=== PATIENT | female | born 1950 | race Caucasian/White ===

== ENCOUNTER 2025-09-04 20:45 | Inpatient (IN) | payer MEDICARE, MEDICAID ==
[~2025-09-04] VITALS: Ht 165.1 cm; Wt 65.0 kg
[~2025-09-04 20:45] MED LIST: ATOR20TA50 PO; DONE5TAB80 PO; LEVO75TA6 PO; LISI1SOL PO; MET25T PO
[2025-09-04 21:06] VITALS: O2SAT 63
[2025-09-04] MEDS: SODIUM CHLORIDE 0.9% 1,000 ML IVB ONE (21:26)
--- NOTE | 2025-09-04 21:36 | ED.PDOC ---
History of Present Illness HPI Comments 74-year-old, nonverbal and bed-bound female, with a known history of Alzheimer's, is brought in by ambulance from [facility] for chief complaint of G-tube displacement. Per EMS personnel report, faculty called after patient has G-tube was dislodged an hour ago, earlier, this evening. G-tube was placed, recently, 1-2 days ago. No reported recent trauma or injury. No further symptoms endorsed at this time. Chief Complaint: Tube Replacement Time Seen by MD: 21:00 Reviewed Notes: Nurses Notes, Senior Animal Trainer Notes, Medications, Allergies Allergies: Coded Allergies: NO KNOWN ALLERGIES (Unverified , 01/26/24) Home Meds Reported Medications Donepezil Hydrochloride (DONEPEZIL HCL) 5 Mg Tab, 1 TAB PO DAILY 01/28/24 Metoprolol Tartrate (Lopressor) 25 Mg Tb, 1 TAB PO BID 01/28/24 Levothyroxine Sodium (Levothyroxine Sodium) 75 Mcg Tab, 1 TAB PO DAILY 01/28/24 Lisinopril (Qbrelis) 1 Mg/Ml Sadia, PO 01/28/24 Atorvastatin Calcium (ATORVASTATIN CALCIUM) 20 Mg Tab, 1 TAB PO DAILY 01/27/24 Information Source: Patient, Emergency Med Personnel Mode of Arrival: EMS Severity: Moderate Timing: Hours Duration: Since onset Prehospital treatment: None Past Medical History PAST MEDICAL HISTORY: Dementia (Alzheimer's), HTN, Thyroid (Hypothyroidism) Surgical History (Other): G-tube ASSET MANAGEMENT COORDINATOR History: Denies all ASSET MANAGEMENT COORDINATOR Hx Family History Family History: Unknown Social History Smoker: Non-Smoker Alcohol: Denies ETOH Use Drugs: Denies Drug Use Lives In: Home All Other Systems: Reviewed and Negative (Comprehensive review of systems are negative unless otherwise stated in HPI) Physical Exam General Appearance: No Apparent Distress, Normal HEENT: Normal ENT Inspection, Pharynx Normal, TMs Normal Neck: Full Range of Motion, Non-Tender, Normal, Normal Inspection Respiratory: Chest Non-Tender, Lungs Clear, No Accessory Muscle Use, No Respiratory Distress, Normal Breath Sounds Cardiovascular: No Edema, No JVD, No Murmur, No Gallop, Normal Peripheral Pulses, Regular Rate/Rhythm Breast Exam: Deferred Gastrointestinal: No Organomegaly, Non Tender, No Pulsatile Mass, Normal Bowel Sounds, Soft, Other (Feeding stoma present but appears closed) Genitalia: Deferred Pelvic: Deferred Rectal: Deferred Extremities: No calf tenderness, Normal capillary refill, Normal inspection, Normal range of motion, Non-tender, No pedal edema Musculoskeletal : Apperance: Normal Neurologic: hand hide stretcher II-XII nml as Tested, No Motor Deficits, Normal Affect (Patient is bed-bound nonverbal at baseline and has a history of Alzheimer's), Normal Mood, No Sensory Deficits Cerebellar Function: Normal Reflexes: Normal Skin: Dry, Normal Color, Warm Lymphatic: No Adenopathy Was a procedure done? Was a procedure done?: No Differential Dx Considerations may include: Differential diagnosis includes but not limited to: Dehydration, sepsis, electrolyte abnormality, surgical infection. And others X-Ray, Labs, Meds, VS Vital Signs Date Time Temp Pulse Resp B/P (MAP) Pulse Ox O2 Delivery O2 Flow Rate FiO2 09/04/25 21:06 63 Room Air* 0 21 09/04/25 21:05 98.3 68 17 118/91 (100) 93 98.3 09/04/25 20:47 97.6 66 16 140/70 94 97.6 Lab Test 09/04/25 22:40 09/04/25 21:23 Range/Units Sodium Level 142 136-145 mmol/L Potassium Level 3.6 3.5-5.1 mmol/L Chloride Level 111 H 98-107 mmol/L Carbon Dioxide Level 24 20-31 mmol/L Anion Gap 7 5-15 Blood Urea Nitrogen 14 9-23 mg/dL Creatinine 0.53 L 0.550-1.02 mg/dL Glomerular Filtration Rate Calc 97 >90 mL/min BUN/Creatinine Ratio 26.4 H 10.0-20.0 Serum Glucose 84 74-106 mg/dL Calcium Level 8.3 L 8.7-10.4 mg/dL Magnesium Level 2.0 1.6-2.6 mg/dL Total Bilirubin 0.4 0.2-1.0 mg/dL Aspartate Amino Transferase (AST) 19 13-40 U/L Alanine Aminotransferase (ALT) 15 7-40 U/L Alkaline Phosphatase 91 46-116 U/L Total Protein 6.6 5.7-8.2 g/dL Albumin 3.4 3.2-4.8 g/dL White Blood Count 8.8 4.4-10.8 10^3/uL Red Blood Count 4.23 4.0-5.20 10^6/uL Hemoglobin 13.3 12.2-16.2 g/dL Hematocrit 38.6 36.0-46.0 % Mean Corpuscular Volume 91.3 80.0-100.0 fL Mean Corpuscular Hemoglobin 31.5 28.0-32.0 pg Mean Corpuscular Hemoglobin Concent 34.5 32.0-36.0 g/dL Red Cell Distribution Width 13.7 11.8-14.3 % Platelet Count 262 140-450 10^3/uL Mean Platelet Volume 8.6 6.9-10.8 fL Neutrophils (%) (Auto) 66.8 37.0-80.0 % Lymphocytes (%) (Auto) 22.8 10.0-50.0 % Monocytes (%) (Auto) 6.4 0.0-12.0 % Eosinophils (%) (Auto) 3.6 0.0-7.0 % Basophils (%) (Auto) 0.4 0.0-2.0 % Neutrophils # (Auto) 5.9 1.6-8.6 10 ^3/uL Lymphocytes # (Auto) 2.0 0.4-5.4 10 ^3/uL Monocytes # (Auto) 0.6 0-1.3 10 ^3/uL Eosinophils # (Auto) 0.3 0-0.8 10 ^3/uL Basophils # (Auto) 0 0-0.2 10 ^3/uL Nucleated Red Blood Cells 0.0 % Prothrombin Time 10.4 9.3-11.8 sec Prothrombin Time INR 0.98 0.9-1.15 Activated Partial Thromboplast Time 25.4 24.5-34.5 SEC Current Medications Medications (Trade) Dose Ordered Sig/Heidi Route Start Time Stop Time Status Last Admin Sodium Chloride 1,000 ml @ 1,000 mls/hr Q1H ONCE IVB 09/04/25 21:15 09/04/25 22:14 DC 09/04/25 21:[address] [address] Ph: [phone] DIAGNOSTIC IMAGING Diagnostic Imaging Report : [id number] Signed PATIENT: JEFFERY MCCLURE ACCT: [id number] UNIT: [id number] : 1950 LOC: ER ROOM / BED: / AGE / SEX: 74 / F ADM STATUS: REG ER SERVICE 12 ORDERING PHYSICIAN: JT HERNANDEZ MD PROCEDURE(s): KUB - KUB ABDOMEN SINGLE VIEW REASON: PEG tube fell out ORDER NUMBER(s): [id number], ACCESSION NUMBER(s): [id number] EXAM: XY KUB ABDOMEN SINGLE VIEW HISTORY: PEG tube fell out COMPARISON: XY CHEST PORTABLE on DOS: 09/04/25 TECHNIQUE: Supine view of the abdomen FINDINGS/IMPRESSION: Nonobstructive bowel gas pattern noted. There is no evidence for pneumoperiton eum. No abnormal calcifications noted. Slight gas distention of colonic loops measuring of the upper limits of normal at 6 cm. No visualized tube. ATED BY: BHAVIN FULLER MD DICTATED DATE/TIME: 09/04/252148 SIGNED BY: BHAVIN FULLER MD SIGNED DATE/TIME: 09/04/252148 CC: [place] [id number] Ph: [phone] DIAGNOSTIC IMAGING Diagnostic Imaging Report : [id number] Signed PATIENT: JEFFERY MCCLURE ACCT: [id number] UNIT: [id number] : 1950 LOC: ER ROOM / BED: / AGE / SEX: 74 / F ADM STATUS: REG ER SERVICE 12 ORDERING PHYSICIAN: JT HERNANDEZ MD PROCEDURE(s): CXRP - CHEST PORTABLE REASON: SOB ORDER NUMBER(s): [id number], ACCESSION NUMBER(s): [id number] EXAM: XY CHEST PORTABLE HISTORY: SOB TECHNIQUE: 1 view of the chest COMPARISON: XY CHEST PORTABLE on DOS: 01/26/24 FINDINGS/IMPRESSION: LUNGS: No pleural effusion, consolidation, or pneumothorax. MEDIASTINUM: Unremarkable. BONES: No acute osseous abnormality. OTHER: None. ATED BY: BHAVIN FULLER MD DICTATED DATE/TIME: 09/04/252148 SIGNED BY: BHAVIN FULLER MD SIGNED DATE/TIME: 09/04/252148 CC: Time of 1ST Reevaluation: 21:30 Reevaluation 1ST: Unchanged Patient Education/Counseling: Other (Patient has Alzheimer's at baseline) Family Education/Counseling: No Family Present SEPSIS Sepsis Screen Date sepsis recognized/suspect: Sep 04, 2025 Time Sepsis recognized/suspect: 2048 Recent Procedure: No On Antibiotic Therapy: No Respiratory Rate >20: No Heart Rate >90: No Temp<36 C (96.8 F) or >38.3 C: No SBP <90 or MAP <65 mmHG: No New Acute Mental Status Change: No Is the patient on CPAP, BIPAP,: No Physician Orders Chest Portable (09/04/25 21:13) Electrocardigram (09/04/25 21:13) Kub Abdomen Single View (09/04/25 21:13) Vital Signs Date Time Temp Pulse Resp B/P (MAP) Pulse Ox O2 Delivery O2 Flow Rate FiO2 09/04/25 21:06 63 Room Air* 0 21 09/04/25 21:05 98.3 68 17 118/91 (100) 93 98.3 09/04/25 20:47 97.6 66 16 140/70 94 97.6 Laboratory Tests Test 09/04/25 21:23 White Blood Count 8.8 10^3/uL (4.4-10.8) Medications Medications Dose Ordered Sig/Heidi Route Start Time Stop Time Status Last Admin Dose Admin Sodium Chloride 1,000 ml @ 1,000 mls/hr Q1H ONCE IVB 09/04/25 21:15 09/04/25 22:14 DC 09/04/25 21:26 Departure 1 Departure Time of Disposition: 00:14 Impression: Primary Impression: Advanced dementia Additional Impressions: Feeding by G-tube Dislodged gastrostomy tube Dehydration Disposition: HOME / SELF CARE / HOMELESS Condition: Guarded Comments 74-year-old female with advanced dementia apparently just received a G-tube feeding tube a couple of days ago and the feeding tube came out. Lab results reviewed. Patient was given IV fluids. Patient will need to be admitted for supportive care and further workup. Critical Care Note Critical Care Time?: No Stability Stability form required: No Heart Score Heart Score: Heart Score Response (Comments) Value History N/A 0 EKG N/A 0 Age N/A 0 Risk Factors N/A 0 Troponin N/A 0 Total 0 I personally scribed for JT HERNANDEZ MD ([email or web address]) on 09/04/25 at 21:36. Electronically submitted by Nick Aleman ([email or web address]). I personally scribed for JT HERNANDEZ MD ([email or web address]) on 09/04/25 at 22:15. Electronically submitted by Nick Aleman ([email or web address]). JT HERNANDEZ MD Sep 04, 2025 21:36
--- NOTE | 2025-09-04 21:51 | DVH ---
EXAM: XY CHEST PORTABLE HISTORY: SOB TECHNIQUE: 1 view of the chest COMPARISON: XY CHEST PORTABLE on DOS: 01/26/24 FINDINGS/IMPRESSION: LUNGS: No pleural effusion, consolidation, or pneumothorax. MEDIASTINUM: Unremarkable. BONES: No acute osseous abnormality. OTHER: None.
--- NOTE | 2025-09-04 21:52 | DVH ---
EXAM: XY KUB ABDOMEN SINGLE VIEW HISTORY: PEG tube fell out COMPARISON: XY CHEST PORTABLE on DOS: 09/04/25 TECHNIQUE: Supine view of the abdomen FINDINGS/IMPRESSION: Nonobstructive bowel gas pattern noted. There is no evidence for pneumoperitoneum. No abnormal calcif ications noted. Slight gas distention of colonic loops measuring of the upper limits of normal at 6 c m. No visualized tube.
[2025-09-04 21:57] LABS: Hematocrit 38.6 % (36.0-46.0); Hemoglobin 13.3 g/dL (12.2-16.2); Mean Corpuscular Hemoglobin 31.5 pg (28.0-32.0); Mean Corpuscular Volume 91.3 fL (80.0-100.0); Nucleated Red Blood Cells % 0.0 %
[2025-09-04 22:12] LABS: INR 0.98 (0.9-1.15); Partial Thromboplastin Time 25.4 SEC (24.5-34.5); Prothrombin Time 10.4 sec (9.3-11.8)
[2025-09-04 23:30] LABS: Alanine Aminotransferase 15 U/L (7-40); Albumin 3.4 g/dL (3.2-4.8); Alkaline Phosphatase 91 U/L (46-116); Anion Gap 7 (5-15); BUN/Creatinine Ratio 26.4 (10.0-20.0); Blood Urea Nitrogen 14 mg/dL (9-23); Carbon Dioxide 24 mmol/L (20-31); Glucose 84 mg/dL (74-106); Magnesium 2.0 mg/dL (1.6-2.6); Potassium 3.6 mmol/L (3.5-5.1); Sodium 142 mmol/L (136-145); Total Protein 6.6 g/dL (5.7-8.2)
[2025-09-04 23:31] LABS: Bilirubin, Total 0.4 mg/dL (0.2-1.0)
[2025-09-04 23:33] LABS: Calcium 8.3 mg/dL (8.7-10.4); Chloride 111 mmol/L (98-107)
[2025-09-05] VITALS (8 sets, daily range): BP systolic 111–142; BP diastolic 55–110; PULSE 60–64; RESP 17–20; TEMP 97.2–98.1; O2SAT 95–99
--- NOTE | 2025-09-05 00:40 | DVHHP2 ---
History of Present Illness HPI 74-year-old, nonverbal and bed-bound female, with a known history of Alzheimer's, is brought in by ambulance from [facility] for chief complaint of G-tube displacement. Per EMS personnel report, faculty called after patient has G-tube was dislodged an hour ago, earlier, this evening. G-tube was placed, recently, 1-2 days ago. No reported recent trauma or injury. No further symptoms endorsed at this time. I am familiar with this pt from [facility]. Home Meds Reported Medications Enoxaparin Sodium (Lovenox) 40 Mg/0.4 Ml Ij, 0.4 ML SUBCUT DAILY, #10 SYR 09/05/25 Donepezil Hydrochloride (Aricept) 5 Mg Tab, 5 MG GT HS, TAB 09/05/25 Levothyroxine Sodium (Synthroid) 75 Mcg Tab, 1 TAB GT DAILY, #30 TAB 5 Refills 09/05/25 Lactobacillus (Probiotic Acidophilus) 1 Cap Cap, 1 CAP GT BID, CAP 09/05/25 Zinc Sulfate (Zinc Sulfate) 220 Mg Cap, 220 MG GT, CAP 09/05/25 Cranberry Extract (Cranberry) 450 Mg Tab, 450 MG GT BID, TAB 09/05/25 Alpha Tocopheryl Acid Succinat (VITAMIN E) 400 Unit Tab, 400 UNIT GT, TAB 09/05/25 Ascorbic Acid (VITAMIN C TABLET) 500 Mg Tb, 500 MG GT BID, TAB 09/05/25 Donepezil Hydrochloride (DONEPEZIL HCL) 5 Mg Tab, 1 TAB PO DAILY 01/28/24 Metoprolol Tartrate (Lopressor) 25 Mg Tb, 1 TAB PO BID 01/28/24 Levothyroxine Sodium (Levothyroxine Sodium) 75 Mcg Tab, 1 TAB PO DAILY 01/28/24 Lisinopril (Qbrelis) 1 Mg/Ml Sadia, PO 01/28/24 Atorvastatin Calcium (ATORVASTATIN CALCIUM) 20 Mg Tab, 1 TAB PO DAILY 01/27/24 Past Medical History Patient Family History: Patient reports no known family medical history. Review of Systems Constitutional: No symptom reported Pulmonary/Respiratory: No symptom reported Gastrointestinal: No symptom reported H&P Exam Vital Signs Vital Signs Date Time Temp Pulse Resp B/P (MAP) Pulse Ox O2 Delivery O2 Flow Rate FiO2 09/04/25 21:06 63 Room Air* 0 21 09/04/25 21:05 98.3 68 17 118/91 (100) 98.3 General Appeara: Well developed, Well nourished Pulmonary/Respiratory: Normal inspection, Normal breath sounds SEPSIS Sepsis Screen Date sepsis recognized/suspect: Sep 04, 2025 Time Sepsis recognized/suspect: 2048 Recent Procedure: No On Antibiotic Therapy: No Respiratory Rate >20: No Heart Rate >90: No Temp<36 C (96.8 F) or >38.3 C: No SBP <90 or MAP <65 mmHG: No New Acute Mental Status Change: No Is the patient on CPAP, BIPAP,: No Physician Orders Chest Portable (09/04/25 21:13) Electrocardigram (09/04/25:13) Kub Abdomen Single View (09/04/25:13) * Gi Dvh Awning Erector (09/05/25 00:36) Admit (09/05/25 00:37) Code Status (09/05/25 00:37) Oxygen Per Hour (09/05/25 00:37) Hydrocodone-Acet 5/325mg Tab ([place] /32 (09/05/25 00:45) Ondansetron Hcl (Zofran) (09/05/25 00:45) Enoxaparin Sodium (Lovenox) (09/05/25 10:00) Complete Blood Count (09/06/25 04:00) Comprehensive Metabolic Panel (09/06/25 04:00) Condition: Serious (09/05/25 00:37) Acetaminophen Tablet (Tylenol Tablet) (09/05/25 00:45) Morphine Sulfate Injection (09/05/25 00:45) Nitroglycerin Sublingual (Ntrostat Subli (09/05/25 00:45) Morphine Sulfate Injection (09/05/25 00:45) Stat Ekg For Chest Pain (09/05/25 00:37) Notify Md Of Changes From Base (09/05/25 00:37) Shower Enclosure Installer For 24 Hours (09/05/25 00:37) Emergency Dysrhythmia Protocol (09/05/25 00:37) Rhythm Strips Once Every Shift (09/05/25 00:37) Oxygen By Nasal Cannula (09/05/25 00:37) Vital Signs Date Time Temp Pulse Resp B/P (MAP) Pulse Ox O2 Delivery O2 Flow Rate FiO2 09/04/25 21:06 63 Room Air* 0 21 09/04/25 21:05 98.3 68 17 118/91 (100) 93 98.3 09/04/25 20:47 97.6 66 16 140/70 94 97.6 Laboratory Tests Test 09/04/25 21:23 White Blood Count 8.8 10^3/uL (4.4-10.8) Medications Medications Dose Ordered Sig/Heidi Route Start Time Stop Time Status Last Admin Dose Admin Sodium Chloride 1,000 ml @ 1,000 mls/hr Q1H ONCE IVB 09/04/25 21:15 09/04/25 22:14 DC 09/04/25 21:26 1,000 MLS/HR Labs/Xrays Labs Test 09/04/25 22:40 09/04/25 21:23 Range/Units Sodium Level 142 136-145 mmol/L Potassium Level 3.6 3.5-5.1 mmol/L Chloride Level 111 H 98-107 mmol/L Carbon Dioxide Level 24 20-31 mmol/L Anion Gap 7 5-15 Blood Urea Nitrogen 14 9-23 mg/dL Creatinine 0.53 L 0.550-1.02 mg/dL Glomerular Filtration Rate Calc 97 >90 mL/min BUN/Creatinine Ratio 26.4 H 10.0-20.0 Serum Glucose 84 74-106 mg/dL Calcium Level 8.3 L 8.7-10.4 mg/dL Magnesium Level 2.0 1.6-2.6 mg/dL Total Bilirubin 0.4 0.2-1.0 mg/dL Aspartate Amino Transferase (AST) 19 13-40 U/L Alanine Aminotransferase (ALT) 15 7-40 U/L Alkaline Phosphatase 91 46-116 U/L Total Protein 6.6 5.7-8.2 g/dL Albumin 3.4 3.2-4.8 g/dL White Blood Count 8.8 4.4-10.8 10^3/uL Red Blood Count 4.23 4.0-5.20 10^6/uL Hemoglobin 13.3 12.2-16.2 g/dL Hematocrit 38.6 36.0-46.0 % Mean Corpuscular Volume 91.3 80.0-100.0 fL Mean Corpuscular Hemoglobin 31.5 28.0-32.0 pg Mean Corpuscular Hemoglobin Concent 34.5 32.0-36.0 g/dL Red Cell Distribution Width 13.7 11.8-14.3 % Platelet Count 262 140-450 10^3/uL Mean Platelet Volume 8.6 6.9-10.8 fL Neutrophils (%) (Auto) 66.8 37.0-80.0 % Lymphocytes (%) (Auto) 22.8 10.0-50.0 % Monocytes (%) (Auto) 6.4 0.0-12.0 % Eosinophils (%) (Auto) 3.6 0.0-7.0 % Basophils (%) (Auto) 0.4 0.0-2.0 % Neutrophils # (Auto) 5.9 1.6-8.6 10 ^3/uL Lymphocytes # (Auto) 2.0 0.4-5.4 10 ^3/uL Monocytes # (Auto) 0.6 0-1.3 10 ^3/uL Eosinophils # (Auto) 0.3 0-0.8 10 ^3/uL Basophils # (Auto) 0 0-0.2 10 ^3/uL Nucleated Red Blood Cells 0.0 % Prothrombin Time 10.4 9.3-11.8 sec Prothrombin Time INR 0.98 0.9-1.15 Activated Partial Thromboplast Time 25.4 24.5-34.5 SEC Assessment/Plan Primary Diagnosis 74-year-old, nonverbal and bed-bound female, with a known history of Alzheimer's, is brought in by ambulance from [facility] for chief complaint of G-tube displacement. Per EMS personnel report, faculty called after patient has G-tube was dislodged an hour ago, earlier, this evening. G-tube was placed, recently, 1-2 days ago. No reported recent trauma or injury. No further symptoms endorsed at this time. acute abd pain alzheimers dislodged G tube hypothyroidism HLD HTN anemia of chronic disease protein-calorie malnutrition admitted consult to GI to replace G tube Plan discussed with: Other (nursing) HERBIE WEISS DO Sep 05, 2025 00:40
[2025-09-05] MEDS ORDERED: MORPHINE SULFATE INJ 2 MG/ml SYRG IV PRN (00:45)
[2025-09-05] MEDS ORDERED: NITROGLYCERIN 0.4 MG SL TAB SL PRN (00:45)
[2025-09-05] MEDS ORDERED: HYDROcodone-ACET 5/325MG TAB PO PRN (00:45)
[2025-09-05] MEDS ORDERED: ACETAMINOPHEN 325 MG TAB PO PRN (00:45)
[2025-09-05] MEDS ORDERED: ONDANSETRON HCL 4 MG/2 ML VIAL IV PRN (00:45)
[2025-09-05] MEDS ORDERED: ASCO500T11 GT ×2 (06:53)
[2025-09-05] MEDS ORDERED: ZINC220C8 GT ×2 (06:53)
[2025-09-05] MEDS ORDERED: DONE5TAB11 GT ×2 (06:53)
[2025-09-05] MEDS ORDERED: LACT1CAP14 GT ×2 (06:53)
[2025-09-05] MEDS ORDERED: ENO40SY SUBCUT ×2 (06:53)
[2025-09-05] MEDS ORDERED: CRAN450T GT ×2 (06:53)
[2025-09-05] MEDS ORDERED: VITA400T4 GT ×2 (06:53)
[2025-09-05] MEDS ORDERED: LEV75T GT ×2 (06:53)
[2025-09-05] MEDS: ENOXAPARIN SOD 40 MG/0.4 ML SYRINGE SC SCH (10:49)
--- NOTE | 2025-09-05 15:51 | DVHINCON2 ---
Date of service: Sep 05, [address] Jason Jacome Reason for Consultation Dislodged G-tube History of Present Illness 74-year-old, nonverbal and bed-bound female, with a known history of Alzheimer's, is brought in by ambulance from [facility] for chief complaint of G-tube displacement. Per EMS personnel report, faculty called after patient has G-tube was dislodged an hour ago, earlier, this evening. G-tube was placed, recently, 1-2 days ago. No reported recent trauma or injury. No further symptoms endorsed at this time. Past Medical History Dementia (Alzheimer's), HTN, Thyroid (Hypothyroidism) Family History: Patient reports no known family medical history. Allergies: Coded Allergies: NO KNOWN ALLERGIES (Unverified , 01/26/24) Home Meds Reported Medications Enoxaparin Sodium (Lovenox) 40 Mg/0.4 Ml Ij, 0.4 ML SUBCUT DAILY, #10 SYR 09/05/25 Donepezil Hydrochloride (Aricept) 5 Mg Tab, 5 MG GT HS, TAB 09/05/25 Levothyroxine Sodium (Synthroid) 75 Mcg Tab, 1 TAB GT DAILY, #30 TAB 5 Refills 09/05/25 Lactobacillus (Probiotic Acidophilus) 1 Cap Cap, 1 CAP GT BID, CAP 09/05/25 Zinc Sulfate (Zinc Sulfate) 220 Mg Cap, 220 MG GT, CAP 09/05/25 Cranberry Extract (Cranberry) 450 Mg Tab, 450 MG GT BID, TAB 09/05/25 Alpha Tocopheryl Acid Succinat (VITAMIN E) 400 Unit Tab, 400 UNIT GT, TAB 09/05/25 Ascorbic Acid (VITAMIN C TABLET) 500 Mg Tb, 500 MG GT BID, TAB 09/05/25 Donepezil Hydrochloride (DONEPEZIL HCL) 5 Mg Tab, 1 TAB PO DAILY 01/28/24 Metoprolol Tartrate (Lopressor) 25 Mg Tb, 1 TAB PO BID 01/28/24 Levothyroxine Sodium (Levothyroxine Sodium) 75 Mcg Tab, 1 TAB PO DAILY 01/28/24 Lisinopril (Qbrelis) 1 Mg/Ml Sadia, PO 01/28/24 Atorvastatin Calcium (ATORVASTATIN CALCIUM) 20 Mg Tab, 1 TAB PO DAILY 01/27/24 Current Medications Current Medications Medications (Trade) Dose Ordered Sig/Heidi Route PRN Reason Start Time Stop Time Status Last Admin Acetaminophen/ Hydrocodone Bitart ([place] 5/325MG Tab) 1 tab Q4HP PRN PO MODERATE PAIN (4-6 PAIN SCALE) 09/05/25 00:45 Ondansetron HCl (Zofran) 4 mg Q4HP PRN IV NAUSEA / VOMITING 09/05/25 00:45 Hold Enoxaparin Sodium (Lovenox) 40 mg DAILY SC 09/05/25 10:00 09/05/25 10:49 Acetaminophen (Tylenol Tablet) 650 mg Q6HP PRN PO PAIN SCALE 1-3 OR TEMP>100.4 09/05/25 00:45 Morphine Sulfate 2 mg Q4HPRN PRN IV SEVERE PAIN (7-10 PAIN SCALE) 09/05/25 00:45 Nitroglycerin (Ntrostat Sublingual) 0.4 mg Q5MINP PRN SL FOR CHEST PAIN 09/05/25 00:45 Morphine Sulfate 2 mg Q30M PRN IV FOR CHEST PAIN 09/05/25 00:45 Vital Signs Vital Signs Date Time Temp Pulse Resp B/P (MAP) Pulse Ox O2 Delivery O2 Flow Rate FiO2 09/05/25 12:53 97.6 60 20 111/55 (73) 98 97.6 09/05/25 08:05 Nasal Cannula* 2 28 Physical Exam Awake and arousable but altered Pupils equal and react to light, extraocular movements intact Abdomen is soft, G-tube site has some dried encrustation Extremities show some muscular weakness Labs/Diagnostic Data Labs Test 09/04/25 22:40 09/04/25 21:23 Range/Units Sodium Level 142 136-145 mmol/L Potassium Level 3.6 3.5-5.1 mmol/L Chloride Level 111 H 98-107 mmol/L Carbon Dioxide Level 24 20-31 mmol/L Anion Gap 7 5-15 Blood Urea Nitrogen 14 9-23 mg/dL Creatinine 0.53 L 0.550-1.02 mg/dL Glomerular Filtration Rate Calc 97 >90 mL/min BUN/Creatinine Ratio 26.4 H 10.0-20.0 Serum Glucose 84 74-106 mg/dL Calcium Level 8.3 L 8.7-10.4 mg/dL Magnesium Level 2.0 1.6-2.6 mg/dL Total Bilirubin 0.4 0.2-1.0 mg/dL Aspartate Amino Transferase (AST) 19 13-40 U/L Alanine Aminotransferase (ALT) 15 7-40 U/L Alkaline Phosphatase 91 46-116 U/L Total Protein 6.6 5.7-8.2 g/dL Albumin 3.4 3.2-4.8 g/dL White Blood Count 8.8 4.4-10.8 10^3/uL Red Blood Count 4.23 4.0-5.20 10^6/uL Hemoglobin 13.3 12.2-16.2 g/dL Hematocrit 38.6 36.0-46.0 % Mean Corpuscular Volume 91.3 80.0-100.0 fL Mean Corpuscular Hemoglobin 31.5 28.0-32.0 pg Mean Corpuscular Hemoglobin Concent 34.5 32.0-36.0 g/dL Red Cell Distribution Width 13.7 11.8-14.3 % Platelet Count 262 140-450 10^3/uL Mean Platelet Volume 8.6 6.9-10.8 fL Neutrophils (%) (Auto) 66.8 37.0-80.0 % Lymphocytes (%) (Auto) 22.8 10.0-50.0 % Monocytes (%) (Auto) 6.4 0.0-12.0 % Eosinophils (%) (Auto) 3.6 0.0-7.0 % Basophils (%) (Auto) 0.4 0.0-2.0 % Neutrophils # (Auto) 5.9 1.6-8.6 10 ^3/uL Lymphocytes # (Auto) 2.0 0.4-5.4 10 ^3/uL Monocytes # (Auto) 0.6 0-1.3 10 ^3/uL Eosinophils # (Auto) 0.3 0-0.8 10 ^3/uL Basophils # (Auto) 0 0-0.2 10 ^3/uL Nucleated Red Blood Cells 0.0 % Prothrombin Time 10.4 9.3-11.8 sec Prothrombin Time INR 0.98 0.9-1.15 Activated Partial Thromboplast Time 25.4 24.5-34.5 SEC Abd X rayFINDINGS/IMPRESSION: Nonobstructive bowel gas pattern noted. There is no evidence for pneumoperitone um. No abnormal calcifications noted. Slight gas distention of colonic loops measuring of the upper limits of normal at 6 cm. No visualized tub Problems(with codes): (1) Advanced dementia (2) Feeding by G-tube (3) Dislodged gastrostomy tube (4) Dehydration Plan/Recommendation Plan Patient will be kept NPO We will start her on IV Clinimix at 42 mL/hour IV fluid hydration Check records to see where the endoscopy and PEG tube was done recently Since the patient had a recent G-tube the tract has probably not found The patient may likely need a repeat endoscopy with PEG tube replacement Surgical consult is pending with Dr. Radha Keen Plan discussed with: Patient, Other (Nurse) SYBIL KEEN MD Sep 05, 2025 15:51
[2025-09-05] MEDS ORDERED: CLINIMIX PER PHARMACY 0 ML IV SCH (16:15)
[2025-09-05] MEDS ORDERED: DEXTROSE (50%) 50ML SYRG IV SCH (16:30)
[2025-09-05] MEDS: InsuLIN REG 1unit/0.01ml Soln (100units/ml) SC SCH (18:00)
[2025-09-05] MEDS: ACCU-CHEK COMFORT CURVE STRIP VI SCH (18:06)
[2025-09-05] MEDS: AMINO ACID INFUSION IN D10W 1,000 ML IV SCH (21:25)
[2025-09-06] VITALS (9 sets, daily range): BP systolic 97–164; BP diastolic 55–71; PULSE 57–77; RESP 14–18; TEMP 97.6–98.6; O2SAT 94–99
[2025-09-06 06:26] LABS: Hematocrit 38.1 % (36.0-46.0); Hemoglobin 13.1 g/dL (12.2-16.2); Mean Corpuscular Hemoglobin 32.0 pg (28.0-32.0); Mean Corpuscular Volume 93.2 fL (80.0-100.0); Nucleated Red Blood Cells % 0.1 %
[2025-09-06 06:36] LABS: Alanine Aminotransferase 15 U/L (7-40); Albumin 3.5 g/dL (3.2-4.8); Alkaline Phosphatase 93 U/L (46-116); Anion Gap 8 (5-15); BUN/Creatinine Ratio 33.3 (10.0-20.0); Blood Urea Nitrogen 18 mg/dL (9-23); Carbon Dioxide 24 mmol/L (20-31); Glucose 105 mg/dL (74-106); Potassium 3.6 mmol/L (3.5-5.1); Sodium 141 mmol/L (136-145); Total Protein 6.8 g/dL (5.7-8.2)
[2025-09-06 06:37] LABS: Bilirubin, Total 0.5 mg/dL (0.2-1.0)
[2025-09-06 06:38] LABS: Calcium 8.7 mg/dL (8.7-10.4); Chloride 109 mmol/L (98-107)
[2025-09-06 06:44] LABS: Magnesium 1.9 mg/dL (1.6-2.6)
[2025-09-06 07:24] LABS: Triglycerides 94.0 mg/dL (< 150)
[2025-09-06] MEDS ORDERED: LIDOCAINE VISCOUS 2% 15ML UD ONE (12:03)
[2025-09-06] MEDS: ceFAZolin 1GM/50ML 50 ML IV ONE ×2 (12:30→16:44)
[2025-09-06] MEDS ORDERED: fentaNYL CITRATE 100 MCG/2 ML VL ONE (13:46)
[2025-09-06] MEDS ORDERED: MIDAZOLAM HCL 2MG/2ML 2ml VIAL (1mg/ml) ONE (13:46)
[2025-09-06] MEDS ORDERED: PROPOFOL 10 MG/ML 20 ML IV ONE (13:49)
--- NOTE | 2025-09-06 14:10 | DVHOP2 ---
Operative Report DATE OF OPERATION: 09/06/25 PROCEDURE: Upper Endoscopy with a PEG tube placement. PREOPERATIVE INDICATION: The patient is a 74 -year-old female undergoing endoscopy for placement of a PEG tube POSTOPERATIVE DIAGNOSES: A percutaneous gastrostomy tube was placed through the previous gastrostomy opening under sterile conditions as per standard protocol using a new PEG tube kit and placement was confirmed by repeat endoscopy PROCEDURE PERFORMED BY: Sybil Keen GI NURSE: Cheryl SCOPE: Olympus videoendoscope. ASA CLASS: 3 PREOPERATIVE MEDICATIONS: Mac sedation, Dr. Ruffin; IV Ancef 2 g PROCEDURE IN DETAIL: After obtaining an informed consent, the patient was placed on left lateral decubitus position. The patient was then sedated with the above medications. A bite block was placed between her teeth after sedation. The endoscope was then passed through the oropharynx, into the esophagus, and through the stomach and pylorus up to the second and third part of the duodenum. The endoscope was then withdrawn. The previous gastrostomy opening was seen in the distal body of the stomach. There was a small Angiocath that was present in the opening The dressing was removed from the anterior wall of the stomach. The previously placed small Angiocath was removed completely The site was prepped and draped in a sterile fashion. An initial attempt was made to put a 14 [place] replacement gastrostomy tube through the same opening However the gastrostomy tube would not pass into the stomach. I decided to proceed by placing a new PEG tube kit The Angiocath was placed through the previous gastrostomy opening however it entered the stomach about an inch distal to the previous gastrostomy opening site Under sterile conditions a percutaneous gastrostomy tube was placed using exchange guided wire method as per standard protocol . Repeat endoscopy was performed and confirmed adequate placement of the PEG tube. The site was prepped and draped in a sterile fashion Abdominal binder was placed and dry dressing applied. The patient tolerated the procedure well without difficulty. COMPLICATIONS : None SPECIMENS: None DISPOSITION: Transfer back to the floor Stable PLAN: 1. See postop PEG tube placement instructions 2. Will place pt on Protonix 40 mg bid IV 3. Repeat labs in a.m. 4. Continue to monitor as an inpatient for another 24-48 hours to ensure that she is tolerating feeding SYBIL KEEN MD Sep 06, 2025 14:10
[2025-09-06] MEDS: MORPHINE SULFATE INJ 2 MG/ml SYRG IV PRN (15:06)
--- NOTE | 2025-09-06 15:28 | DVHPN2 ---
Progress Note Date Seen: Sep 06, 2025 Medical Necessity Reason Pt with a Central, PICC or Fol: No Subjective Review of Systems: HEENT:Normal, CVS:Normal, RESPIRATORY:Normal Objective vital signs Vital Sign Date Time Temp Pulse Resp B/P (MAP) Pulse Ox O2 Delivery O2 Flow Rate FiO2 09/06/25 15:06 69 14 139/59 09/06/25 14:40 97 09/06/25 14:05 99.0 99.0 09/06/25 14:05 Mask 6.0 98 Total Intake and Output 09/05/25 09/05/25 09/06/25 15:00 23:00 07:00 Intake Total 0 ml 0 ml Output Total 1 ml Balance -1 ml 0 ml medications Current Medications Medications Dose Ordered Sig/Heidi Route Start Time Stop Time Status Last Admin Dose Admin Acetaminophen/ Hydrocodone Bitart 1 tab Q4HP PRN PO 09/05/25 00:45 Ondansetron HCl 4 mg Q4HP PRN IV 09/05/25 00:45 Hold Enoxaparin Sodium 40 mg DAILY SC 09/05/25 10:00 09/06/25 10:16 40 MG Acetaminophen 650 mg Q6HP PRN PO 09/05/25 00:45 Morphine Sulfate 2 mg Q4HPRN PRN IV 09/05/25 00:45 09/06/25 15:06 2 MG Nitroglycerin 0.4 mg Q5MINP PRN SL 09/05/25 00:45 Morphine Sulfate 2 mg Q30M PRN IV 09/05/25 00:45 Ceftriaxone Sodium 50 ml @ 100 mls/hr DAILY@09 IV 09/06/25 09:00 09/06/25 10:16 100 MLS/HR Amino Acids 0 ml @ 0 mls/hr PER PHARMACY IV 09/05/25 16:15 Diagnostic Test (Pha) 1 strip Q6HR 09/05/25 18:00 09/06/25 12:00 1 STRIP Insulin Human Regular FOLLOW SLIDING SCALE Q6HR SC 09/05/25 18:00 Dextrose 50 ml UD IV 09/05/25 16:30 Amino Acids/ Electrolytes/ Dextrose 1,000 ml @ 41 mls/hr DAILY@2200 IV 09/05/25 22:00 09/05/25 21:25 41 MLS/HR Enteral Nutritional Formula 240 ml Q6HR PO 09/07/25 06:00 Examination: GENERAL:Normal, HEENT:Normal, NECK:Normal, LUNGS:Normal laboratory and microbiology Laboratory Tests 09/06/25 05:30 Test 09/06/25 05:30 Range/Units Serum Glucose 105 74-106 mg/dL Microbiology Date/Time Source Procedure Growth Status 09/05/25 10:50 Nose MRSA Screen - Final Complete Labs and/or images reviewed: Labs reviewed by me, Image(s) reviewed by me Problem List/Assessment/Plan Problem List/Assessment/Plan 74-year-old, nonverbal and bed-bound female, with a known history of Alzheimer's, is brought in by ambulance from [facility] for chief complaint of G-tube displacement. Per EMS personnel report, faculty called after patient has G-tube was dislodged an hour ago, earlier, this evening. G-tube was placed, recently, 1-2 days ago. No reported recent trauma or injury. No further symptoms endorsed at this time. acute abd pain alzheimers dislodged G tube hypothyroidism HLD HTN anemia of chronic disease protein-calorie malnutrition admitted consult to GI to replace G tube 09/06/2025 GI replace G tube and recommend to observe/use for 24 hours prior to discharge to make sure the G tube is properly functional Plan discussed with: Other (nursing) My Orders My Orders Orders - HERBIE WEISS DO Procedure Category Date Status Time * Gi [employer] Program[employer] Analyst CONS 09/05/25 Transmitted 16:54 * Surgical Consult CONS 09/05/25 Transmitted 16:55 Type And Screen BBK 09/06/25 Logged 12:16 Dietary Evaluation Review Comments: Nutrition Recommendation 1) Consider TPN to supply 8492-0184 kcal & 57-68 gm protein if pt is on clinimix >5 days 2) If feeding tube is placed, consider Jevity 1.2Cal @ 55ml/hr x 24 hr. Water flush 130ml Q6H if allowed, adjust PRN. TF at goal volume provides 1584 kcal (100%), 73 gm protein (100%), and 1585 ml free water (including flush). 3) Monitor NPO status, lab values, weight trend, and I/O Expected Outcomes/Goals: Intake to meet >75% estimated needs FU 2-3 days HERBIE WEISS DO Sep 06, 2025 15:28
[2025-09-07] VITALS (8 sets, daily range): BP systolic 91–128; BP diastolic 36–57; PULSE 56–76; RESP 14–17; TEMP 96.5–98.9; O2SAT 3–99
[2025-09-07] MEDS: ENSURE CLEAR Apple 8oz Carton PO SCH (07:00)
[2025-09-07 07:22] LABS: Hematocrit 41.7 % (36.0-46.0); Hemoglobin 14.0 g/dL (12.2-16.2); Mean Corpuscular Hemoglobin 31.1 pg (28.0-32.0); Mean Corpuscular Volume 92.5 fL (80.0-100.0); Nucleated Red Blood Cells % 0.0 %
[2025-09-07 07:32] LABS: INR 1.0 (0.9-1.15); Partial Thromboplastin Time 21.7 SEC (24.5-34.5); Prothrombin Time 10.6 sec (9.3-11.8)
[2025-09-07 07:39] LABS: Alanine Aminotransferase 16 U/L (7-40); Albumin 3.6 g/dL (3.2-4.8); Alkaline Phosphatase 97 U/L (46-116); Anion Gap 12 (5-15); BUN/Creatinine Ratio 16.4 (10.0-20.0); Blood Urea Nitrogen 9 mg/dL (9-23); Carbon Dioxide 21 mmol/L (20-31); Magnesium 2.1 mg/dL (1.6-2.6); Potassium 3.6 mmol/L (3.5-5.1); Sodium 142 mmol/L (136-145); Total Protein 7.1 g/dL (5.7-8.2)
[2025-09-07 07:43] LABS: Bilirubin, Total 0.2 mg/dL (0.2-1.0); Calcium 8.7 mg/dL (8.7-10.4); Chloride 109 mmol/L (98-107); Glucose 117 mg/dL (74-106)
[2025-09-07] MEDS: ENSURE CLEAR Mixed Berry 8oz Carton GT ONE (10:00)
--- NOTE | 2025-09-07 10:02 | DVHPN2 ---
Progress Note - Dictate Date Seen: Sep 07, 2025 Medical Necessity Reason Pt with a Central, PICC or Fol: No Subjective No new complaints G-tube site is clean G-tube was able to be rotated Abdominal binder in place vital signs Vital Sign Date Time Temp Pulse Resp B/P (MAP) Pulse Ox O2 Delivery O2 Flow Rate FiO2 09/07/25 08:41 96.5 56 17 106/44 (64) 96 96.5 09/06/25 20:00 Room Air* 0 21 Total Intake and Output 09/06/25 09/06/25 09/07/25 15:00 23:00 07:00 Intake Total 125 ml 50 ml 0 ml Balance 125 ml 50 ml 0 ml medications Current Medications Medications Dose Ordered Sig/Heidi Route Start Time Stop Time Status Last Admin Dose Admin Acetaminophen/ Hydrocodone Bitart 1 tab Q4HP PRN PO 09/05/25 00:45 Ondansetron HCl 4 mg Q4HP PRN IV 09/05/25 00:45 Hold Enoxaparin Sodium 40 mg DAILY SC 09/05/25 10:00 09/07/25 08:59 40 MG Acetaminophen 650 mg Q6HP PRN PO 09/05/25 00:45 Morphine Sulfate 2 mg Q4HPRN PRN IV 09/05/25 00:45 09/06/25 15:06 2 MG Nitroglycerin 0.4 mg Q5MINP PRN SL 09/05/25 00:45 Morphine Sulfate 2 mg Q30M PRN IV 09/05/25 00:45 Ceftriaxone Sodium 50 ml @ 100 mls/hr DAILY@09 IV 09/06/25 09:00 09/07/25 08:35 100 MLS/HR Amino Acids 0 ml @ 0 mls/hr PER PHARMACY IV 09/05/25 16:15 Diagnostic Test (Pha) 1 strip Q6HR 09/05/25 18:00 09/07/25 05:38 1 STRIP Insulin Human Regular FOLLOW SLIDING SCALE Q6HR SC 09/05/25 18:00 09/07/25 05:39 2 UNITS Dextrose 50 ml UD IV 09/05/25 16:30 Amino Acids/ Electrolytes/ Dextrose 1,000 ml @ 41 mls/hr DAILY@2200 IV 09/05/25 22:00 09/06/25 21:25 41 MLS/HR Enteral Nutritional Formula 240 ml Q6HR PO 09/07/25 06:00 objective Awake and arousable but altered Pupils equal and react to light, extraocular movements intact Abdomen is soft, G-tube site is clean Extremities show some muscular weakness laboratory and microbiology Laboratory Tests 09/07/25 06:46 Test 09/07/25 06:46 Range/Units Serum Glucose 117 H 74-106 mg/dL Problems(with codes): (1) Dislodged gastrostomy tube (2) Feeding by G-tube (3) Advanced dementia (4) Dehydration Prognosis Plan Continue IV fluid hydration Clean G-tube with dilute hydrogen peroxide twice a day Rotate G-tube twice a day Check gastric residuals Start G-tube feedings with one can every 6 hours Keep abdominal binder in place Discussed with nurse Ahumada Dietary Evaluation Review Comments: Nutrition Recommendation 1) Consider TPN to supply 7719-5786 kcal & 57-68 gm protein if pt is on clinimix >5 days 2) If feeding tube is placed, consider Jevity 1.2Cal @ 55ml/hr x 24 hr. Water flush 130ml Q6H if allowed, adjust PRN. TF at goal volume provides 1584 kcal (100%), 73 gm protein (100%), and 1585 ml free water (including flush). 3) Monitor NPO status, lab values, weight trend, and I/O Expected Outcomes/Goals: Intake to meet >75% estimated needs FU 2-3 days Plan discussed with: Patient, Other (Nurse Ahumada) SYBIL ESPOSITO MD Sep 07, 2025 10:02
[2025-09-07] MEDS: POTASSIUM PHOSPHATE 26.4 MEQ in SODIUM CHL 0.9% 100 ML IV ONE (11:52)
[2025-09-07] MEDS: ENSURE CLEAR Apple 8oz Carton GT SCH (12:17)
--- NOTE | 2025-09-07 15:19 | DVHDS2 ---
Discharge Summary Date of Admission Sep 05, 2025 at 00:37 Date of Discharge: Sep 07, 2025 Labs/Diagnostic Data: Laboratory Results Test 09/07/25 06:46 09/07/25 05:29 09/06/25 05:30 White Blood Count 12.9 10^3/uL (4.4-10.8) Red Blood Count 4.51 10^6/uL (4.0-5.20) Hemoglobin 14.0 g/dL (12.2-16.2) Hematocrit 41.7 % (36.0-46.0) Mean Corpuscular Volume 92.5 fL (80.0-100.0) Mean Corpuscular Hemoglobin 31.1 pg (28.0-32.0) Mean Corpuscular Hemoglobin Concent 33.6 g/dL (32.0-36.0) Red Cell Distribution Width 13.4 % (11.8-14.3) Platelet Count 259 10^3/uL (140-450) Mean Platelet Volume 8.6 fL (6.9-10.8) Neutrophils (%) (Auto) 82.1 % (37.0-80.0) Lymphocytes (%) (Auto) 12.7 % (10.0-50.0) Monocytes (%) (Auto) 5.0 % (0.0-12.0) Eosinophils (%) (Auto) 0.0 % (0.0-7.0) Basophils (%) (Auto) 0.2 % (0.0-2.0) Neutrophils # (Auto) 10.6 10 ^3/uL (1.6-8.6) Lymphocytes # (Auto) 1.6 10 ^3/uL (0.4-5.4) Monocytes # (Auto) 0.6 10 ^3/uL (0-1.3) Eosinophils # (Auto) 0 10 ^3/uL (0-0.8) Basophils # (Auto) 0 10 ^3/uL (0-0.2) Nucleated Red Blood Cells 0.0 % Prothrombin Time 10.6 sec (9.3-11.8) Prothrombin Time INR 1.00 (0.9-1.15) Activated Partial Thromboplast Time 21.7 SEC (24.5-34.5) Sodium Level 142 mmol/L (136-145) Potassium Level 3.6 mmol/L (3.5-5.1) Chloride Level 109 mmol/L (98-107) Carbon Dioxide Level 21 mmol/L (20-31) Anion Gap 12 (5-15) Blood Urea Nitrogen 9 mg/dL (9-23) Creatinine 0.55 mg/dL (0.550-1.02) Glomerular Filtration Rate Calc 96 mL/min (>90) BUN/Creatinine Ratio 16.4 (10.0-20.0) Serum Glucose 117 mg/dL (74-106) Calcium Level 8.7 mg/dL (8.7-10.4) Phosphorus Level 2.2 mg/dL (2.4-5.1) Magnesium Level 2.1 mg/dL (1.6-2.6) Total Bilirubin 0.2 mg/dL (0.2-1.0) Aspartate Amino Transferase (AST) 24 U/L (13-40) Alanine Aminotransferase (ALT) 16 U/L (7-40) Alkaline Phosphatase 97 U/L (46-116) Total Protein 7.1 g/dL (5.7-8.2) Albumin 3.6 g/dL (3.2-4.8) POC Glucose 136 mg/dl (70-106) Triglycerides Level 94 mg/dL (< 150) Other Laboratory Tests 09/07/25 06:46 Brief Hx & Hospital Course: 74-year-old, nonverbal and bed-bound female, with a known history of Alzheimer's, is brought in by ambulance from [facility] for chief complaint of G-tube displacement. Per EMS personnel report, faculty called after patient has G-tube was dislodged an hour ago, earlier, this evening. G-tube was placed, recently, 1-2 days ago. No reported recent trauma or injury. No further symptoms endorsed at this time. acute abd pain alzheimers dislodged G tube hypothyroidism HLD HTN anemia of chronic disease protein-calorie malnutrition admitted consult to GI to replace G tube 09/06/2025 GI replace G tube and recommend to observe/use for 24 hours prior to discharge to make sure the G tube is properly functional 09/07/2025: tolerated tube feed, d/c back to assisted living Condition at Discharge: Fair Final Diagnosis/Problems List see above Discharge Disposition: Assisted Living Facility Discharge Instruct/Medications Diet: Cardiac 2g Na,low cholest Activity: No Restrictions, As Tolerated Scheduled Ascorbic Acid (Vitamin C Tablet), 500 MG GT BID, (Reported) Atorvastatin Calcium (Atorvastatin Calcium), 1 TAB PO DAILY, (Reported) Cranberry Extract (Cranberry), 450 MG GT BID, (Reported) Donepezil Hydrochloride (Donepezil Hcl), 1 TAB PO DAILY, (Reported) Donepezil Hydrochloride (Aricept), 5 MG GT HS, (Reported) Enoxaparin Sodium (Lovenox), 0.4 ML SUBCUT DAILY, (Reported) Lactobacillus (Probiotic Acidophilus), 1 CAP GT BID, (Reported) Levothyroxine Sodium (Levothyroxine Sodium), 1 TAB PO DAILY, (Reported) Levothyroxine Sodium (Synthroid), 1 TAB GT DAILY, (Reported) Metoprolol Tartrate (Lopressor), 1 TAB PO BID, (Reported) Miscellaneous Medications Alpha Tocopheryl Acid Succinat (Vitamin E), 400 UNIT GT, (Reported) Lisinopril (Qbrelis), PO, (Reported) Zinc Sulfate (Zinc Sulfate), 220 MG GT, (Reported) Discharge Statement: "Patient was advised to return to the ER or call 911 if any headaches, dizziness, shortness of breath, chest pain, abdominal pain, bleeding, fevers, or worsening of medical condition. Patient was counseled about treatment plan, medications, possible side effects, patientverbalized understanding. All questions were answered to the best of my ability. This discharge took greater then 30 minutes in planning, reviewing documentation, counseling the patient, and discussing with other team members." ASSESSMENT ASSESSMENT Assessment HERBIE WEISS DO Sep 07, 2025 15:19
[2025-09-08] VITALS (8 sets, daily range): BP systolic 106–135; BP diastolic 39–100; PULSE 58–88; RESP 14–20; TEMP 98.4–99.5; O2SAT 2–97
[2025-09-08 07:28] LABS: Alanine Aminotransferase 25 U/L (7-40); Albumin 3.3 g/dL (3.2-4.8); Alkaline Phosphatase 93 U/L (46-116); Anion Gap 12 (5-15); BUN/Creatinine Ratio 31.4 (10.0-20.0); Blood Urea Nitrogen 16 mg/dL (9-23); Calcium 8.0 mg/dL (8.7-10.4); Carbon Dioxide 23 mmol/L (20-31); Chloride 107 mmol/L (98-107); Glucose 109 mg/dL (74-106); Magnesium 1.7 mg/dL (1.6-2.6); Potassium 3.0 mmol/L (3.5-5.1); Sodium 142 mmol/L (136-145); Total Protein 6.2 g/dL (5.7-8.2)
[2025-09-08 07:29] LABS: Bilirubin, Total 0.2 mg/dL (0.2-1.0)
[2025-09-08] MEDS ORDERED: POTASSIUM CHL 20MEQ/100ML 100 ML IV ONE (15:15)
[2025-09-08] MEDS: POTASSIUM PHOSPHATE 22 MEQ in SODIUM CHL 0.9% 100 ML IV ONE (17:15)
[2025-09-09 05:00] VITALS: BP 141/82; PULSE 70; RESP 18; TEMP 97.9; O2SAT 96
[2025-09-09 08:04] LABS: Alanine Aminotransferase 24 U/L (7-40); Albumin 3.4 g/dL (3.2-4.8); Alkaline Phosphatase 95 U/L (46-116); Anion Gap 12 (5-15); BUN/Creatinine Ratio 28.0 (10.0-20.0); Bilirubin, Total 0.3 mg/dL (0.2-1.0); Blood Urea Nitrogen 14 mg/dL (9-23); Carbon Dioxide 24 mmol/L (20-31); Chloride 105 mmol/L (98-107); Magnesium 1.8 mg/dL (1.6-2.6); Sodium 141 mmol/L (136-145); Total Protein 6.7 g/dL (5.7-8.2)
[2025-09-09 08:05] VITALS: PULSE 58; RESP 17; O2SAT 99
[2025-09-09 08:05] LABS: Calcium 8.5 mg/dL (8.7-10.4); Glucose 110 mg/dL (74-106); Potassium 3.1 mmol/L (3.5-5.1)
[2025-09-09 09:00] VITALS: BP 145/115; PULSE 58; RESP 17; TEMP 98.2; O2SAT 99
[2025-09-09] MEDS: ceFAZolin 1GM/50ML 50 ML IV ONE (09:56)
--- NOTE | 2025-09-09 11:40 | DVHPN2 ---
Progress Note Date Seen: Sep 08, 2025 Medical Necessity Reason Pt with a Central, PICC or Fol: No Objective vital signs Vital Sign Date Time Temp Pulse Resp B/P (MAP) Pulse Ox O2 Delivery O2 Flow Rate FiO2 09/09/25 09:00 98.2 58 17 145/115 (125) 99 98.2 09/08/25 20:00 Nasal Cannula* 2 28 Total Intake and Output 09/08/25 09/08/25 09/09/25 15:00 23:00 07:00 Intake Total 0 ml 0 ml Output Total 3 ml Balance -3 ml 0 ml medications Current Medications Medications Dose Ordered Sig/Heidi Route Start Time Stop Time Status Last Admin Dose Admin Acetaminophen/ Hydrocodone Bitart 1 tab Q4HP PRN PO 09/05/25 00:45 Ondansetron HCl 4 mg Q4HP PRN IV 09/05/25 00:45 Hold Enoxaparin Sodium 40 mg DAILY SC 09/05/25 10:00 09/09/25 09:56 40 MG Acetaminophen 650 mg Q6HP PRN PO 09/05/25 00:45 Morphine Sulfate 2 mg Q4HPRN PRN IV 09/05/25 00:45 09/06/25 15:06 2 MG Nitroglycerin 0.4 mg Q5MINP PRN SL 09/05/25 00:45 Morphine Sulfate 2 mg Q30M PRN IV 09/05/25 00:45 Ceftriaxone Sodium 50 ml @ 100 mls/hr DAILY@09 IV 09/06/25 09:00 09/09/25 08:34 100 MLS/HR Amino Acids 0 ml @ 0 mls/hr PER PHARMACY IV 09/05/25 16:15 Diagnostic Test (Pha) 1 strip Q6HR 09/05/25 18:00 09/09/25 05:59 1 STRIP Insulin Human Regular FOLLOW SLIDING SCALE Q6HR SC 09/05/25 18:00 09/09/25 06:03 2 UNITS Dextrose 50 ml UD IV 09/05/25 16:30 Amino Acids/ Electrolytes/ Dextrose 1,000 ml @ 41 mls/hr DAILY@2200 IV 09/05/25 22:00 09/08/25 22:26 41 MLS/HR Enteral Nutritional Formula 240 ml Q6HR GT 09/07/25 12:00 09/09/25 05:59 240 ML Examination: GENERAL:Normal, HEENT:Normal, NECK:Normal laboratory and microbiology Laboratory Tests 09/09/25 04:55 09/07/25 06:46 Test 09/09/25 04:55 Range/Units Serum Glucose 110 H 74-106 mg/dL Microbiology Date/Time Source Procedure Growth Status 09/05/25 10:50 Nose MRSA Screen - Final Complete Labs and/or images reviewed: Labs reviewed by me, Image(s) reviewed by me Problem List/Assessment/Plan Problem List/Assessment/Plan 74-year-old, nonverbal and bed-bound female, with a known history of Alzheimer's, is brought in by ambulance from [facility] for chief complaint of G-tube displacement. Per EMS personnel report, faculty called after patient has G-tube was dislodged an hour ago, earlier, this evening. G-tube was placed, recently, 1-2 days ago. No reported recent trauma or injury. No further symptoms endorsed at this time. acute abd pain alzheimers dislodged G tube hypothyroidism HLD HTN anemia of chronic disease protein-calorie malnutrition admitted consult to GI to replace G tube 09/06/2025 GI replace G tube and recommend to observe/use for 24 hours prior to discharge to make sure the G tube is properly functional 09/08/2025: GI wanted to make sure G-tube works well, close monitoring with tube feeding, possible d/c in 24 hours Plan discussed with: Patient My Orders My Orders Orders - HERBIE WEISS DO Procedure Category Date Status Time Discharge DISCHARGE 09/09/25 Transmitted 11:38 Dietary Evaluation Review Comments: Nutrition Recommendation 1) Consider TPN to supply 7758-7146 kcal & 57-68 gm protein if pt is on clinimix >5 days 2) If feeding tube is placed, consider Jevity 1.2Cal @ 55ml/hr x 24 hr. Water flush 130ml Q6H if allowed, adjust PRN. TF at goal volume provides 1584 kcal (100%), 73 gm protein (100%), and 1585 ml free water (including flush). 3) Monitor NPO status, lab values, weight trend, and I/O Expected Outcomes/Goals: Intake to meet >75% estimated needs FU 2-3 days HERBIE WEISS DO Sep 09, 2025 11:40
--- NOTE | 2025-09-09 11:41 | DVHPN2 ---
Progress Note Date Seen: Sep 09, 2025 Medical Necessity Reason Pt with a Central, PICC or Fol: No Objective vital signs Vital Sign Date Time Temp Pulse Resp B/P (MAP) Pulse Ox O2 Delivery O2 Flow Rate FiO2 09/09/25 09:00 98.2 58 17 145/115 (125) 99 98.2 09/08/25 20:00 Nasal Cannula* 2 28 Total Intake and Output 09/08/25 09/08/25 09/09/25 15:00 23:00 07:00 Intake Total 0 ml 0 ml Output Total 3 ml Balance -3 ml 0 ml medications Current Medications Medications Dose Ordered Sig/Heidi Route Start Time Stop Time Status Last Admin Dose Admin Acetaminophen/ Hydrocodone Bitart 1 tab Q4HP PRN PO 09/05/25 00:45 Ondansetron HCl 4 mg Q4HP PRN IV 09/05/25 00:45 Hold Enoxaparin Sodium 40 mg DAILY SC 09/05/25 10:00 09/09/25 09:56 40 MG Acetaminophen 650 mg Q6HP PRN PO 09/05/25 00:45 Morphine Sulfate 2 mg Q4HPRN PRN IV 09/05/25 00:45 09/06/25 15:06 2 MG Nitroglycerin 0.4 mg Q5MINP PRN SL 09/05/25 00:45 Morphine Sulfate 2 mg Q30M PRN IV 09/05/25 00:45 Ceftriaxone Sodium 50 ml @ 100 mls/hr DAILY@09 IV 09/06/25 09:00 09/09/25 08:34 100 MLS/HR Amino Acids 0 ml @ 0 mls/hr PER PHARMACY IV 09/05/25 16:15 Diagnostic Test (Pha) 1 strip Q6HR 09/05/25 18:00 09/09/25 05:59 1 STRIP Insulin Human Regular FOLLOW SLIDING SCALE Q6HR SC 09/05/25 18:00 09/09/25 06:03 2 UNITS Dextrose 50 ml UD IV 09/05/25 16:30 Amino Acids/ Electrolytes/ Dextrose 1,000 ml @ 41 mls/hr DAILY@2200 IV 09/05/25 22:00 09/08/25 22:26 41 MLS/HR Enteral Nutritional Formula 240 ml Q6HR GT 09/07/25 12:00 09/09/25 05:59 240 ML Examination: GENERAL:Normal, HEENT:Normal, NECK:Normal, LUNGS:Normal laboratory and microbiology Laboratory Tests 09/09/25 04:55 09/07/25 06:46 Test 09/09/25 04:55 Range/Units Serum Glucose 110 H 74-106 mg/dL Microbiology Date/Time Source Procedure Growth Status 09/05/25 10:50 Nose MRSA Screen - Final Complete Labs and/or images reviewed: Labs reviewed by me, Image(s) reviewed by me Problem List/Assessment/Plan Problem List/Assessment/Plan 74-year-old, nonverbal and bed-bound female, with a known history of Alzheimer's, is brought in by ambulance from [facility] for chief complaint of G-tube displacement. Per EMS personnel report, faculty called after patient has G-tube was dislodged an hour ago, earlier, this evening. G-tube was placed, recently, 1-2 days ago. No reported recent trauma or injury. No further symptoms endorsed at this time. acute abd pain alzheimers dislodged G tube hypothyroidism HLD HTN anemia of chronic disease protein-calorie malnutrition admitted consult to GI to replace G tube 09/06/2025 GI replace G tube and recommend to observe/use for 24 hours prior to discharge to make sure the G tube is properly functional 09/08/2025: GI wanted to make sure G-tube works well, close monitoring with tube feeding, possible d/c in 24 hours 09/09/2025 consult case management to arrange for transportation back to SNF ok to d/c per GI Plan discussed with: Patient My Orders My Orders Orders - HERBIE WEISS DO Procedure Category Date Status Time Discharge DISCHARGE 09/09/25 Transmitted 11:38 Dietary Evaluation Review Comments: Nutrition Recommendation 1) Consider TPN to supply 7022-9909 kcal & 57-68 gm protein if pt is on clinimix >5 days 2) If feeding tube is placed, consider Jevity 1.2Cal @ 55ml/hr x 24 hr. Water flush 130ml Q6H if allowed, adjust PRN. TF at goal volume provides 1584 kcal (100%), 73 gm protein (100%), and 1585 ml free water (including flush). 3) Monitor NPO status, lab values, weight trend, and I/O Expected Outcomes/Goals: Intake to meet >75% estimated needs FU 2-3 days WEISS,HERBIE T DO Sep 09, 2025 11:41
[2025-09-09 13:00] VITALS: BP_SYST 145; BP_DIAS 115; BP_DIAS 86; PULSE 58; PULSE 64; RESP 20; TEMP 98.6; TEMP 98.8; O2SAT 96; O2SAT 99
[2025-09-09 13:26] VITALS: BP 145/86; PULSE 58; RESP 20; TEMP 98.6; O2SAT 96
--- NOTE | 2025-09-09 15:45 | DVHPN2 ---
Progress Note - Dictate Date Seen: Sep 09, 2025 Medical Necessity Reason Pt with a Central, PICC or Fol: No Subjective No new complaints G-tube site is clean G-tube was able to be rotated Abdominal binder in place Pt tolerating GT feedings with Ensure clear vital signs Vital Sign Date Time Temp Pulse Resp B/P (MAP) Pulse Ox O2 Delivery O2 Flow Rate FiO2 09/09/25 13:26 98.6 58 20 96 09/09/25 13:00 145/86 (105) 09/09/25 08:05 Nasal Cannula* 2 28 Total Intake and Output 09/08/25 09/08/25 09/09/25 15:00 23:00 07:00 Intake Total 0 ml 0 ml Output Total 3 ml Balance -3 ml 0 ml medications Current Medications Medications Dose Ordered Sig/Heidi Route Start Time Stop Time Status Last Admin Dose Admin Acetaminophen/ Hydrocodone Bitart 1 tab Q4HP PRN PO 09/05/25 00:45 Ondansetron HCl 4 mg Q4HP PRN IV 09/05/25 00:45 Hold Enoxaparin Sodium 40 mg DAILY SC 09/05/25 10:00 09/09/25 09:56 40 MG Acetaminophen 650 mg Q6HP PRN PO 09/05/25 00:45 Morphine Sulfate 2 mg Q4HPRN PRN IV 09/05/25 00:45 09/06/25 15:06 2 MG Nitroglycerin 0.4 mg Q5MINP PRN SL 09/05/25 00:45 Morphine Sulfate 2 mg Q30M PRN IV 09/05/25 00:45 Ceftriaxone Sodium 50 ml @ 100 mls/hr DAILY@09 IV 09/06/25 09:00 09/09/25 08:34 100 MLS/HR Amino Acids 0 ml @ 0 mls/hr PER PHARMACY IV 09/05/25 16:15 Diagnostic Test (Pha) 1 strip Q6HR 09/05/25 18:00 09/09/25 11:57 1 STRIP Insulin Human Regular FOLLOW SLIDING SCALE Q6HR SC 09/05/25 18:00 09/09/25 06:03 2 UNITS Dextrose 50 ml UD IV 09/05/25 16:30 Amino Acids/ Electrolytes/ Dextrose 1,000 ml @ 41 mls/hr DAILY@2200 IV 09/05/25 22:00 09/08/25 22:26 41 MLS/HR Enteral Nutritional Formula 240 ml Q6HR GT 09/07/25 12:00 09/09/25 13:30 240 ML objective Awake and arousable but altered Pupils equal and react to light, extraocular movements intact Abdomen is soft, G-tube site is clean Extremities show some muscular weakness laboratory and microbiology Laboratory Tests 09/09/25 04:55 09/07/25 06:46 Test 09/09/25 04:55 Range/Units Serum Glucose 110 H 74-106 mg/dL Problems(with codes): (1) Dislodged gastrostomy tube (2) Feeding by G-tube (3) Advanced dementia (4) Dehydration Prognosis Plan Advance tube feedings as tolerated Discharge planning in progress Dietary Evaluation Review Comments: Nutrition Recommendation 1) Consider TPN to supply 7565-0170 kcal & 57-68 gm protein if pt is on clinimix >5 days 2) If feeding tube is placed, consider Jevity 1.2Cal @ 55ml/hr x 24 hr. Water flush 130ml Q6H if allowed, adjust PRN. TF at goal volume provides 1584 kcal (100%), 73 gm protein (100%), and 1585 ml free water (including flush). 3) Monitor NPO status, lab values, weight trend, and I/O Expected Outcomes/Goals: Intake to meet >75% estimated needs FU 2-3 days Plan discussed with: Other (Nurse Brock) SYBIL ESPOSITO MD Sep 09, 2025 15:45
[2025-09-09] MEDS ORDERED: POTASSIUM CHL 20MEQ/100ML 100 ML IV ONE (16:30)
== END 2025-09-09 16:11 | DRG 920 ==
LOC: EDBD 20:45 → ER 20:46 → OVERFLOW 09-05 00:37 → CENTRAL 09-05 02:08
PROVIDERS: ADMIT Internal Medicine; ATTEND Internal Medicine
PROC: 0DP68UZ Removal of Feeding Device from Stomach, Via Natural or Artificial Opening Endoscopic (ICD-10-PCS; 2025-09-06)
PROC: 0DH63UZ Insertion of Feeding Device into Stomach, Percutaneous Approach (ICD-10-PCS; principal; 2025-09-06 13:32)
DX: T85.528A Displacement of other gastrointestinal prosthetic devices, implants and grafts, initial encounter (principal); E44.1 Mild protein-calorie malnutrition; D63.8 Anemia in other chronic diseases classified elsewhere; G30.9 Alzheimer's disease, unspecified; I10 Essential (primary) hypertension; E03.9 Hypothyroidism, unspecified; E86.0 Dehydration; E78.5 Hyperlipidemia, unspecified; Y83.8 Other surgical procedures as the cause of abnormal reaction of the patient, or of later complication, without mention of misadventure at the time of the procedure; F02.80 Dementia in other diseases classified elsewhere, unspecified severity, without behavioral disturbance, psychotic disturbance, mood disturbance, and anxiety; Z74.01 Bed confinement status; Y92.89 Other specified places as the place of occurrence of the external cause; Z68.23 Body mass index [BMI] 23.0-23.9, adult
CPT/HCPCS: 36415; 43246; 71045; 74018; 80053; 82962; 83735; 84100; 84478; 85025; 85610; 85730; 86850; 86900; 86901; 87081; 96360; G0378; J1100; J1815; J2250; J2704

== ENCOUNTER 2025-09-11 16:14 | Emergency (ER) | payer MEDICARE, MEDICAID ==
[~2025-09-11] VITALS: Ht 160 cm; Wt 68.0 kg
[~2025-09-11 16:14] MED LIST changes: +ASCO500T11 GT; +CRAN450T GT; +DONE5TAB11 GT; +ENO40SY SUBCUT; +LACT1CAP14 GT; +LEV75T GT; +VITA400T4 GT; +ZINC220C8 GT
[2025-09-11 16:45] VITALS: PULSE 79; RESP 13; O2SAT 97
--- NOTE | 2025-09-11 17:18 | ED.PDOC ---
GI ASSESSMENT HPI Comments This is a 74 year old female BIBA presenting to the ED with chief complaint of G-tube dysfunction. EMS reports patient is coming from [facility] for concern of G-Tube dysfunction today, not flowing correctly. EMS relays patient was seen in the ED 2 days ago for the same complaint. Patient non-verbal and unable to answer questions. Chief Complaint: Tube Replacement Time Seen by MD: 17:14 Reviewed Notes: Nurses Notes, Medications, Allergies Allergies: Coded Allergies: NO KNOWN ALLERGIES (Unverified , 01/26/24) Home Meds Reported Medications Enoxaparin Sodium (Lovenox) 40 Mg/0.4 Ml Ij, 0.4 ML SUBCUT DAILY, #10 SYR 09/05/25 Donepezil Hydrochloride (Aricept) 5 Mg Tab, 5 MG GT HS, TAB 09/05/25 Levothyroxine Sodium (Synthroid) 75 Mcg Tab, 1 TAB GT DAILY, #30 TAB 5 Refills 09/05/25 Lactobacillus (Probiotic Acidophilus) 1 Cap Cap, 1 CAP GT BID, CAP 09/05/25 Zinc Sulfate (Zinc Sulfate) 220 Mg Cap, 220 MG GT, CAP 09/05/25 Cranberry Extract (Cranberry) 450 Mg Tab, 450 MG GT BID, TAB 09/05/25 Alpha Tocopheryl Acid Succinat (VITAMIN E) 400 Unit Tab, 400 UNIT GT, TAB 09/05/25 Ascorbic Acid (VITAMIN C TABLET) 500 Mg Tb, 500 MG GT BID, TAB 09/05/25 Donepezil Hydrochloride (DONEPEZIL HCL) 5 Mg Tab, 1 TAB PO DAILY 01/28/24 Metoprolol Tartrate (Lopressor) 25 Mg Tb, 1 TAB PO BID 01/28/24 Levothyroxine Sodium (Levothyroxine Sodium) 75 Mcg Tab, 1 TAB PO DAILY 01/28/24 Lisinopril (Qbrelis) 1 Mg/Ml Sadia, PO 01/28/24 Atorvastatin Calcium (ATORVASTATIN CALCIUM) 20 Mg Tab, 1 TAB PO DAILY 01/27/24 Information Source: Emergency Med Personnel Mode of Arrival: EMS Timing: Days Duration: Since onset Prehospital treatment: None Recent: None Recent Hx of: None Past Medical History PAST MEDICAL HISTORY: Dementia, HTN, Thyroid Surgical History: Denies all surgeries [employer] 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 Family History Family History: Unknown Social History Smoker: Non-Smoker Alcohol: Denies ETOH Use Drugs: Denies Drug Use Lives In: Home Constitutional: denies: chills, diaphoresis, fatigue, fever, malaise, sweats, weakness, others EENTM: denies: blurred vision, double vision, ear bleeding, ear discharge, ear drainage, ear pain, ear ringing, eye pain, eye redness, hearing loss, mouth pain, mouth swelling, nasal discharge, nose bleeding, nose congestion, nose pain, photophobia, tearing, throat pain, throat swelling, voice changes, others Respiratory: denies: cough, hemoptysis, orthopnea, SOB at rest, shortness of breath, SOB with excertion, stridor, wheezing, others Cardiovascular: denies: chest pain, dizzy spells, diaphoresis, Dyspnea on exertion, edema, irregular heart beat, left arm pain, lightheadedness, palpitations, PND, syncope, others Gastrointestinal: denies: abdomen distended, abdominal pain, blood streaked bowels, constipated, diarrhea, dysphagia, difficulty swallowing, hematemesis, melena, nausea, poor appetite, poor fluid intake, rectal bleeding, rectal pain, vomiting, others Genitourinary: denies: abnormal vagina bleeding, burning, dyspareunia, dysuria, flank pain, frequency, hematuria, incontinence, pain, , vagina discharge, urgency, others Neurological: denies: dizziness, fainting, headache, left sided numbness, left sided weakness, numbness, paresthesia, pre-existing deficit, right sided numbness, right sided weakness, seizure, speech problems, tingling, tremors, weakness, others Musculoskeletal: denies: back pain, gout, joint pain, joint swelling, muscle pain, muscle stiffness, neck pain, others Integumetry: denies: bruises, change in color, change in hair/nails, dryness, laceration, lesions, lumps, rash, wounds, others Allergic/Immunocompromised: denies: Difficulty Healing, Frequent Infections, Hives, Itching, others Hematologic/Lymphatic: denies: anemia, blood clots, easy bleeding, easy bruising, swollen glands, others Endocrine: denies: excessive hunger, excessive sweating, excessive thirst, excessive urination, flushing, intolerance to cold, intolerance to heat, unexplained weight gain, unexplained weight loss, others Psychiatric: denies: anxiety, bipolar disorder, depression, hopeless, panic disorder, schizophrenia, sleepless, suicidal, others All Other Systems: Reviewed and Negative Physical Exam General Appearance: No Apparent Distress, Normal HEENT: Normal ENT Inspection, Pharynx Normal, TMs Normal Neck: Full Range of Motion, Non-Tender, Normal, Normal Inspection Respiratory: Chest Non-Tender, Lungs Clear, No Accessory Muscle Use, No Respiratory Distress, Normal Breath Sounds Cardiovascular: No Edema, No JVD, No Murmur, No Gallop, Normal Peripheral Pulses, Regular Rate/Rhythm Breast Exam: Deferred Gastrointestinal: No Organomegaly, Non Tender, No Pulsatile Mass, Normal Bowel Sounds, Soft, Other (G-Tube in place with no signs of bleeding or discharge) Genitalia: Deferred Pelvic: Deferred Rectal: Deferred Extremities: No calf tenderness, Normal capillary refill, Normal inspection, Normal range of motion, Non-tender, No pedal edema Musculoskeletal : Apperance: Normal Neurologic: Alert, clinical immunologist II-XII nml as Tested, No Motor Deficits, Normal Affect, Normal Mood, No Sensory Deficits Cerebellar Function: Normal Reflexes: Normal Skin: Dry, Normal Color, Warm Lymphatic: No Adenopathy Was a procedure done? Was a procedure done?: No GI differential Dx Differential Diagnosis: Gastritis/PUD, Other (G-TUBE COMPLICATIONS) X-Ray, Labs, Meds, VS Vital Signs Date Time Temp Pulse Resp B/P (MAP) Pulse Ox O2 Delivery O2 Flow Rate FiO2 09/11/25 16:45 79 13 97 Room Air* 0 21 09/11/25 16:44 98.4 79 13 131/98 (109) 97 98.4 09/11/25 16:20 100.6 71 18 132/58 98 100.6 X-Ray, Labs, Meds, VS Comment 10 CC GASTRIC CONTENT PULLED OUT OF G-TUBE, 20 CC GUARDING FED BACK IN, ABDOMEN IS SOFT, G2 FUNCTIONING APPROPRIATELY. Time of 1ST Reevaluation: 18:13 Reevaluation 1ST: Unchanged Patient Education/Counseling: Diagnosis, Treatment, Need For Follow Up (FOLLOW UP NEEDED) Family Education/Counseling: No Family Present SEPSIS Sepsis Screen Date sepsis recognized/suspect: Sep 11, 2025 Time Sepsis recognized/suspect: 1624 Recent Procedure: No On Antibiotic Therapy: No Respiratory Rate >20: No Heart Rate >90: No Temp<36 C (96.8 F) or >38.3 C: No SBP <90 or MAP <65 mmHG: No New Acute Mental Status Change: No Is the patient on CPAP, BIPAP,: No Vital Signs Date Time Temp Pulse Resp B/P (MAP) Pulse Ox O2 Delivery O2 Flow Rate FiO2 09/11/25 16:45 79 13 97 Room Air* 0 21 09/11/25 16:44 98.4 79 13 131/98 (109) 97 98.4 09/11/25 16:20 100.6 71 18 132/58 98 100.6 Departure 1 Departure Time of Disposition: 18:36 Impression: Primary Impression: Feeding by G-tube Disposition: 01 HOME / SELF CARE / HOMELESS Condition: Fair Discharged With: Legal Guardian Critical Care Note Critical Care Time?: No Stability Stability form required: No Heart Score Heart Score: Heart Score Response (Comments) Value History N/A 0 EKG N/A 0 Age N/A 0 Risk Factors N/A 0 Troponin N/A 0 Total 0 I personally scribed for BENNETT FRANK ([email or web address]) on 09/11/25 at 17:18. Electronically submitted by Martinez Asher ([email or web address]). BENNETT FRANK Sep 11, 2025 17:18
[2025-09-11 20:00] VITALS: BP 131/103; PULSE 86; RESP 19; TEMP 98.1; O2SAT 99
== END 2025-09-11 20:44 | disposition home or self-care (01) ==
LOC: ER 16:14 → EDBD 16:14 → ER 20:44
DX: K94.23 Gastrostomy malfunction (principal); I10 Essential (primary) hypertension; E03.9 Hypothyroidism, unspecified; F03.90 Unspecified dementia, unspecified severity, without behavioral disturbance, psychotic disturbance, mood disturbance, and anxiety; Z79.899 Other long term (current) drug therapy
CPT/HCPCS: 82947